=== PATIENT | male | born 1950 | race Caucasian/White ===

== ENCOUNTER → 2018-10-19 | Outpatient (CLI) | payer MEDICARE, OTHER ==
[~2018-10-19] MED LIST: ACYC-50 PO; ASP81 PO; ASPI-1471 PO; CAR200 PO; CARB-82 PO; CARB-90 PO; CLIN-1 PO; CLOB15CR21 TP; FA/M1TAB27 PO; FLU180SY11 IM; FLUO20DR5 OT; IBU800 PO; KET10 PO; LOR5/325 PO; METF-450 PO; METH4TAB66 PO; MULT-27 PO; PNEI IJ; PNEU0.5D3 IM; TRIA15CR40 TP
--- NOTE | 2018-10-19 14:15 | RADIOLOGY IMAGING REPORT ---
FACILITY: PATIENT NAME: Mario Alberto Dueñas : 1950 MR: [id number] V: [id number] EXAM DATE: ORDERING PHYSICIAN: MANDA JENNINGS TECHNOLOGIST: Location: [facility] Patient: Mario Alberto Dueñas : 1950 Visit/Account:[id number] Date of Sevice: 10/19/2018 Exam type: US VENOUS LOWER EXT RT History: Right calf pain Comparison: None. Findings: The right lower extremity veins were imaged including the right common femoral vein, greater saphenou s vein, superficial femoral vein, popliteal vein, posterior tibial vein, peroneal vein and anterior t ibial vein revealing no evidence of intrarenal thrombi. The veins were compressible and demonstrated augmentation. IMPRESSION: 1. No sonographic evidence DVT involving the right lower extremity veins Results were called to MANDA JENNINGS at 10/19/2018 2:06 PM. Report Dictated By: Sarah Roberson MD at 10/19/2018 2:03 PM Report E-Signed By: Sarah Roberson MD at 10/19/2018 2:06 PM WSN:[email or web address]
== END ==
LOC: US 12:59
PROVIDERS: ATTEND Physician Assistant
DX: R22.41 Localized swelling, mass and lump, right lower limb (principal); M79.661 Pain in right lower leg